=== PATIENT | female | born 1950 | race Caucasian/White ===

== ENCOUNTER 2019-03-22 21:27 | Observation (INO) ==
[2019-03-22] MEDS ORDERED: NITROGLYCERIN TOP ONE (21:36)
--- NOTE | 2019-03-22 21:40 | PROVIDER DOCUMENTATION ---
This chart was entered by Du Chance Scribe, acting as scribe for Geovany Howell MD. HPI-Chest Pain - General Chief Complaint: Chest Pain Stated Complaint: CP Time Seen by Provider: 03/22/19 21:31 Source: patient, EMS Allergies/Adverse Reactions: Patient Allergies Allergy/AdvReac Type Severity Reaction Status Date / Time oxycodone HCl * Allergy Severe ANAPHYLAXIS Verified 03/22/19 21:38 [From Percocet] Sulfa (Sulfonamide Allergy Severe HIVES Verified 03/22/19 21:38 Antibiotics) meloxicam Allergy Intermediate HIVES Verified 03/22/19 21:38 levofloxacin [From Levaquin] Allergy Unknown Verified 03/22/19 21:38 methylprednisolone AdvReac Severe high blood Verified 03/22/19 21:38 sugar Home Medications: Home Medication List Medication Instructions Recorded Confirmed Last Taken Type Cetirizine HCl 10 mg PO DAILY 12/12/13 02/19/19 11/16/17 History 10 MG Digoxin 250 mcg PO DAILY 12/12/13 02/19/19 11/16/17 History 250 MCG ENALApril [Vasotec] 5 mg PO BID 12/12/13 02/19/19 11/15/17 History 5 MG Furosemide 40 mg PO DAILY 12/12/13 02/19/19 11/16/17 History 40 MG Metoprolol Tartrate 12.5 mg PO BID 12/12/13 02/19/19 11/16/17 History 12.5 MG Spironolactone 25 mg PO DAILY 12/12/13 02/19/19 11/16/17 History 25 MG Aspirin [Aspirin EC] 81 mg PO DAILY #0 12/19/13 02/19/19 11/15/17 Rx 81 MG Isosorbide Mononitrate E.r. [Imdur] 30 mg PO DAILY 11/16/15 02/19/19 11/16/17 History 30 MG Pantoprazole [Protonix] 40 mg PO DAILY 11/16/15 02/19/19 11/16/17 History 40 MG Glipizide 10 mg PO DAILY 05/13/16 02/19/19 11/16/17 History 10 MG Famotidine [Pepcid] 20 mg PO BID 11/16/17 02/19/19 11/16/17 History 20 MG Lidocaine 5% Patch [Lidoderm] 1 ea TOP DAILY #6 patch 11/16/17 02/19/19 Unknown Rx Nystatin Cream [Mycostatin Cream] 1 applicatn TOP TID #1 tube 03/19/18 02/19/19 Unknown Rx Polyethylene Glycol 3350 [Miralax] 17 gm PO DAILY #255 powder 03/19/18 02/19/19 Unknown Rx Hyoscyamine Subl [Levsin-Sl] 0.125 mg SL TID #10 tab 03/24/18 02/19/19 Unknown Rx Fluticasone 50 Mcg Nasal [place] 1 spray INTRANASAL DAILY #1 bottle 02/19/19 Unknown Rx [Flonase] Loratadine 10 mg PO DAILY #15 tab 02/19/19 Unknown Rx - History of Present Illness-CP Nature of Presenting Problem: Pt is a 68 yof who presents to the ED via EMS with a CC of chest pain. Pt reports her chest pain began approximately one hour prior to arrival to the ED. Pt reports her pain is on the left side of her heart. Pt reports a hx of a heart attack and states she had a cardiac stent placed. Pt reports her current pain is a 3/10 on examination. Location: reports: central Quality of Pain: reports: aching Severity in ED: mild Onset/Duration: 1 hour ago Timing: still present, improving Nitro Today/Relief: 0.4 mg x 2, provided at home Prior Chest Pain/Cardiac Workup: reports: cardiac cath Similar Symptoms Previously?: Yes Recently Seen Here or By Another Healthcare Provider: No Review of Systems - Adult - REVIEW OF SYSTEMS - ADULT Constitutional: reports: see HPI Eyes: reports: no symptoms reported Ears, Nose, Mouth & Throat: reports: no symptoms reported Cardiovascular: reports: see HPI, chest pain Respiratory: reports: no symptoms reported Neurological: reports: no symptoms reported Psychiatric: reports: no symptoms reported Endocrine: reports: no symptoms reported Hematologic/Lymphatic: reports: no symptoms reported Allergic/Immunologic: reports: no symptoms reported All Other Systems: Reviewed and Negative Past History - Adult - PAST MEDICAL HISTORY-ADULT Review of Records: reports: Old Records Reviewed, Nursing Assessment Review, Medications Reviewed, Social history reviewed & non-contributory. Major Childhood Illnesses: reports: denies history Cardiovascular: reports: cardiac disease, CHF, HTN, [place], pacemaker, other (AICD) Respiratory: reports: denies history Gastrointestinal: reports: colitis, diverticulosis, GI bleed, IBS, obstruction, other (diverticulitis) Obstetrical/Gynecological: reports: denies history Genitourinary: reports: denies history Musculoskeletal: reports: denies history Neurological: reports: denies history Endocrine/Immune: reports: Diabetes Other Conditions: reports: denies history - PRIOR SURGERIES/PROCEDURES Surgical/Procedure History: reports: appendectomy, cholecystectomy, pacemaker (defib), hysterectomy, bowel surgery (colon resection /ischemic bowel) - IMMUNIZATION STATUS Childhood Immunizations: See Nurse Assessment Flu Vaccine: See Nurse Assessment - FAMILY HISTORY Family History: reviewed, not pertinent - SOCIAL HISTORY Smoking: non-smoker, quit greater than 1 year Substance Use: none/never, denies Alcohol Use Frequency: never Physical Exam-General - PHYSICAL EXAM-ADULT Initial Vital Signs Reviewed: Yes - CONSTITUTIONAL General Appearance: alert, mild distress - EYES Eyes: PERRL/EOMI, pink conjunctivae - HEAD, EARS, NOSE, MOUTH & THROAT HENMT: normocephalic/atraumatic, moist mucous membranes - NECK Neck: non-tender, full range of motion - GASTROINTESTINAL (ABDOMEN) Abdominal Exam: non tender, soft - MUSCULOSKELETAL Extremity: normal range of motion, non-tender - SKIN Integumentary: normal color, warm/dry - NEUROLOGIC Neurologic: grossly normal, no motor/sensory deficits - PSYCHIATRIC Psych/Mental Status: normal mood/affect, normal thought content, normal thought process, oriented x 3 - HEART Score HEART Score: History: Slightly Suspicious HEART Score: ECG: Normal HEART Score: Age: > or = 65 Years HEART Score: Risk Factors for Atherosclerotic Disease: > or = 3 Risk Factors or History of Atherosclerotic Disease HEART Score: Troponin: < or = Normal Limit Total HEART Score:: 4 Progress - PLAN OF CARE/RESULTS Progress/Plan/Lab Results: Laboratory Results - last 24 hr 03/22/19 03/22/19 00:35 00:35 Creatine Kinase 64 Troponin T < 0.010 Result Diagrams: 03/22/19 21:42 03/22/19 21:42 - REASSESSMENT Reassessment #1 Time Reassessed: 23:00 Status: improving Reassessment Comment: chest pain free - EKG 1 Time of EKG reading by physician:: 21:35 EKG Read and Signed by:: Goevany Howell EKG Interpretation (*Must complete 3 of following elements*): Normal Rate: 87 Rhythm: NSR [place]: normal QRS: normal NM Interval: normal ST Wave: normal - CONSULTS/PCP/HOSPITALIST Notification #1 *Consult/PCP/Hospitalist*: Dr. Mancini Time Discussed: 23:15 Reason/Comments: report given Consult Disposition: Admit Departure - Departure Date of Disposition Decision: 03/23/19 Time of Disposition Decision: 00:46 DIAGNOSIS: Chest pain Qualifiers: Chest pain type: unspecified Qualified Code(s): R07.9 - Chest pain, unspecified CAD (coronary artery disease) Qualifiers: Coronary Disease-Associated Artery/Lesion type: [place] artery [place] vs. transplanted heart: [place] heart Associated angina: with unspecified angina Qualified Code(s): I25.119 - Atherosclerotic heart disease of [place] coronary artery with unspecified angina pectoris Disposition: ADMITTED INPATIENT 09 Certified Medical Emergency: Emergent Condition: Stable - Critical Care Note This patient required my direct & personal management of CC.: No Attestation - Physician/ MARC Attestation Patient care was provided by Advanced Practice Provider:: No The physician spent face to face time with patient:: Yes Advanced Practice Provider documentation review:: Supervising physician onsite and consulted in the evaluation and care of this patient. The physician did have a face to face encounter with the patient. This chart was documented by the indicated scribe, (Du Chance, Scribe) and accurately reflects the services I performed and decisions made by me, Geovany Howell MD, as attested by the provider's signature.
[2019-03-22 21:55] LABS: BASO# 0.06 X1000 (0.0-0.2); BASO% 0.5 % (0.0-0.8); EOS% 5.8 % (0.0-10.0); HEMOGLOBIN 13.4 g/dL (12.0-16.0); IMM GRAN% 0.8 % (0.0-0.5); LYMPH# 3.33 X1000 (1.2-3.4); LYMPH% 27.5 % (20.5-51.1); MCHC 31.9 g/dL (33-37); MCV 78.2 FL (81-99); MONO# 0.59 X1000 (0.11-0.59); MONO% 4.9 % (1.7-9.3); MPV 9.8 FL (7.4-10.4); NEUT# 7.35 X1000 (1.4-6.5); NEUT% 60.5 % (42.2-75.2); PLT 295 X1000 (130-400); RBC 5.37 XMIL (4.2-5.4); RDW 17.5 % (11.5-14.5); WBC 12.13 X1000 (4.8-10.8)
[2019-03-22 22:31] LABS: AGAP 16; ALB/GLOB RATIO 1.5; ALBUMIN 4.3 g/dL (3.5-5.0); ALKALINE PHOSPHATASE 102 U/L (32-104); BUN 19 mg/dL (8-22); CALCIUM 9.5 mg/dL (8.8-10.2); CHLORIDE 99 mmol/L (98-107); CK PROFILE 73 U/L (24-173); COSMO 282; CREATININE 0.7 mg/dL (0.5-0.9); ESTIMATED GFR > 60; GLUCOSE 210 mg/dL (70-104); GOT 21 U/L (10-30); GPT 27 U/L (10-36); POTASSIUM 4.4 mmol/L (3.5-5.1); SODIUM 137 mmol/L (136-145); TCO2 22 mmol/L (25-35); TOTAL BILIRUBIN 0.15 mg/dL (0.20-1.00); TOTAL PROTEIN 7.2 g/dL (6.3-8.3)
--- NOTE | 2019-03-22 22:50 | EKG Report ---
Test Performed on : 03/22/2019 9:34:46 PM Test Reason : CP Blood Pressure : / mmHG Vent. Rate : 087 BPM Atrial Rate : 087 BPM P-R Int : 206 ms QRS Dur : 102 ms QT Int : 382 ms P-R-T Axes : 065 -18 088 degrees QTc Int : 459 ms Normal sinus rhythm. Normal ECG When compared with ECG of 19-FEB-2019 19:58, (Unconfirmed) No significant change was found Unconfirmed Result
[2019-03-22] MEDS ORDERED: NITROGLYCERIN TOP PRN (23:51)
[2019-03-23] MEDS ORDERED: NITROGLYCERIN TOP PRN (05:01)
--- NOTE | 2019-03-23 05:28 | HISTORY AND PHYSICAL ---
CHIEF COMPLAINT: Left-sided chest pain for less than 1 day. HISTORY OF PRESENT ILLNESS: Ms Jadyn Ramires is a 68-year-old female, who has a history of nonischemic cardiomyopathy, coronary artery disease, history of ventricular fibrillation with an ICD, hypertension and diabetes mellitus. She presented to the hospital because of left-sided chest pain for less than one day. She describes the pain as sharp, intermittent, and usually lasts about 30 seconds. It radiates to her jaw and across her chest. It is improved with nitroglycerin and also aspirin, and made worse with activity. She has had associated shortness of breath, palpitations as well as diaphoresis. At time of her presentation, troponins were not elevated. Chest x-ray was essentially normal. EKG shows normal sinus rhythm. The patient indicates that she has had a cardiac stress test in the last 1 to 2 years, and also a cardiac cath about a year ago. She does have one stent in place. The patient has now [*] and admitted to the floor for further management. PAST MEDICAL HISTORY: 1. Nonischemic cardiomyopathy. 2. Coronary artery disease. 3. History of ventricular fibrillation with ICD. 4. Hypertension. 5. Type 2 diabetes mellitus. 6. History of atrial fibrillation. 7. Gastroesophageal reflux disease. 8. Arthritis. SOCIAL HISTORY: No history of cigarette smoking, alcohol or drug use. PAST SURGICAL HISTORY: She has had bilateral breast lumpectomy, appendectomy, cholecystectomy, low back surgery, hysterectomy, and colon resection. She has also had a left heart catheterization in May of 2015, and had left circumflex stent placed. ALLERGIES: She is allergic to Percocet as well as sulfa and Meloxicam. FAMILY HISTORY: Positive for congestive heart failure as well as colon cancer. MEDICATIONS: 1. Lidocaine patch 1 daily. 2. Nystatin cream as directed. 3. Famotidine 20 mg as directed. 4. Fluticasone nasal spray as directed. 5. Lasix 40 mg p.o. as directed. 6. Glipizide 10 mg p.o. 7. Loratadine 10 mg as directed. 8. MiraLAX. 9. Spironolactone. 10. Aspirin 81 mg p.o. daily. 11. Cetirizine 10 mg p.o. daily. 12. Digoxin 250 mcg as directed. Enalapril 5 mg p.o. as directed. 13. Imdur 30 mg. 14. Metoprolol 25 mg p.o. as directed. 15. Pantoprazole 40 mg p.o. as directed. 16. Hyoscyamine 0.125 mg sublingual 3 times a day. REVIEW OF SYSTEMS: Constitutional: No fevers. ADMINISTRATION INTERNSHIP: She has headaches. Eyes: No blurred vision. ENT: No sinus point tenderness. Cardiovascular: As in history of present illness. Respiratory: She has cough. GI: Nausea. No vomiting, diarrhea, or abdominal pain. : No dysuria. Musculoskeletal: She has joint pains. Dermatology: She has skin lesions. Hematology: No bleeding problems. Endocrinology: She has diabetes. No thyroid disease. Psychiatric: No anxiety or depression. Allergies/Immunology: She does have symptoms suggestive of allergic rhinitis. PHYSICAL EXAMINATION: VITAL SIGNS: Temperature 98 degrees, pulse 77, respirations 12, blood pressure 146/65, and oxygen saturation 98%. HEENT: She is atraumatic, normocephalic. She is anicteric. Extraocular movements intact. No oral lesions noted. NECK: No lymphadenopathy or thyromegaly. CARDIOVASCULAR: S1, S2. RESPIRATORY: Evidence of good entry bilaterally. ABDOMEN: Soft, nontender. No masses felt. EXTREMITIES: She has trace edema in the lower extremities. CENTRAL NERVOUS SYSTEM: No obvious focal deficit noted. LABORATORY: WBC 12.13, hematocrit 42 with a platelet count of 295,000. Sodium is 137, potassium 4.4, chloride 99, bicarb 23, BUN is 19, creatinine 0.7, and glucose 210. Troponin is less than 0.010 x 2. Chest x-ray normal. EKG shows normal sinus rhythm. ASSESSMENT AND PLAN: 1. Atypical chest pain/history of coronary artery disease. Place patient on telemetry. Follow up on serial cardiac enzymes. Maintain patient on aspirin as well as beta rebecca. Nitroglycerin p.r.n. for chest pain. Check 2D echo of the heart. Consult with Cardiology. 2. Nonischemic cardiomyopathy. Stable. Continue appropriate cardiac medications, digoxin, ART inhibitor, Lasix, beta rebecca and spironolactone. 3. Diabetes mellitus. Maintain patient on blood sugar monitor as well as sliding scale insulin. Check hemoglobin A1c level. 4. Gastroesophageal reflux disease. Maintain patient on proton pump inhibitor. 5. Hypertension. Continue current antihypertensive regimen. 6. History of atrial fibrillation. Maintain patient on telemetry check. Thyroid function test. Consult with Cardiology. 7. Leukocytosis. Repeat white count is elevated. May need to find source, probably infective. 8. Microcytosis. Check iron studies. 9. Deep vein thrombosis prophylaxis. Lovenox. 10. Gastrointestinal prophylaxis. Proton pump inhibitor. cc: Griffin Mancini MD
--- NOTE | 2019-03-23 06:02 | Diag Imaging Result Doc PS360 ---
EXAM: CHEST-1 VIEW HISTORY: chest pain TECHNIQUE: Single view COMPARISON: 04/24/2018 FINDINGS: The lungs are well expanded. The heart is mildly prominent. Left pacemaker. The vessels are not distended. There are no infiltrates. No effusion identified. Right granuloma. IMPRESSION: Stable chest Electronically signed by Prabhjot Ballesteros 03/23/2019 6:00 AM
[2019-03-23] MEDS: HUMALOG SUBQ SCH ×2 (06:17→11:32)
[2019-03-23] MEDS ORDERED: PRILOSEC PO SCH (07:00)
[2019-03-23 07:12] LABS: HEMOGLOBIN A1C 7.3 % (4.8-6.0)
[2019-03-23 07:18] LABS: CHOLESTEROL 148 mg/dL (0-200); HDL 30 mg/dL (45-65); LDL 80 mg/dL; TRIGLYCERIDES 189 mg/dL (35-135); VLDL 38 mg/dL
[2019-03-23] MEDS ORDERED: VASOTEC PO SCH (09:00)
[2019-03-23] MEDS ORDERED: LOVENOX SUBQ SCH (09:00)
[2019-03-23] MEDS ORDERED: ALDACTONE PO SCH (09:00)
[2019-03-23] MEDS ORDERED: IMDUR PO SCH (09:00)
[2019-03-23] MEDS ORDERED: LOPRESSOR PO SCH ×2 (09:00→10:24)
[2019-03-23] MEDS ORDERED: ZYRTEC PO SCH (09:00)
[2019-03-23] MEDS ORDERED: LANOXIN PO SCH (09:00)
[2019-03-23] MEDS ORDERED: ASPIRIN EC PO SCH ×2 (09:00→21:00)
[2019-03-23] MEDS ORDERED: LASIX PO SCH (09:00)
[2019-03-23 11:57] VITALS: BP 135/73
--- NOTE | 2019-03-23 15:35 | CONSULTATION ---
DATE OF CONSULTATION: 03/23/2019 IMPRESSION: 1. Episode of chest discomfort lasting approximately 30 minutes with mixed features for myocardial ischemia. Serial troponins normal despite 30 minutes of discomfort. 2. Nonischemic cardiomyopathy. 3. Atherosclerotic coronary disease with previous coronary angioplasty/stent procedures in the past. She had coronary angiography approximately 6 months ago for recurrent chest pain and continue medical management was felt to be most appropriate. 4. History of ventricular arrhythmias. Patient is status post implantable defibrillator with Medtronic device. 5. Paroxysmal atrial fibrillation. Patient continues in sinus rhythm. 6. Type 2 diabetes mellitus. 7. Gastroesophageal reflux disease. RECOMMENDATIONS: 1. Increase metoprolol. 2. Interrogate her device to see if there any clues regarding any possible arrhythmia or atrial fibrillation that might have provoked her chest discomfort. 3. Given fairly recent coronary angiography and negative cardiac enzymes, it is reasonable for her to go home to have prompt followup with her regular aquatic physiotherapist, Dr. Rodriguez. She has already eaten breakfast today and expresses a strong preference not to stay in the hospital over the weekend. I certainly think it is most reasonable for her to go home if interrogation of her device shows no significant arrhythmias. HISTORY: This is a 68-year-old white female with past history of nonischemic cardiomyopathy, atherosclerotic coronary disease and previous coronary angioplasty/stent procedures in the past, ventricular arrhythmias, implantable defibrillator, hypertension, type 2 diabetes mellitus, previous atrial fibrillation, gastroesophageal reflux, was admitted to the emergency room for evaluation of chest pain. She reports an episode of dull central chest discomfort radiating to the neck and shoulders which began spontaneously. Symptoms lasted approximately 30 minutes. She was admitted through the emergency room and cardiology consultation requested. She has not had recurrence of discomfort. She has had occasional chest discomfort in the past. She had coronary angiography approximately 6 months ago in [place] which dictated continued medical management. Her coronary angiogram report is available and indicates left ventricular ejection fraction 45 to 50 percent, normal left main coronary, normal LAD, patent stents in the mid segment of the left circumflex coronary and 2nd obtuse marginal, and mild irregularities in the right coronary. Left ventricular end-diastolic pressure was 14. She does relate that there were some palpitations in association with the chest discomfort. PAST MEDICAL HISTORY: 1. Nonischemic cardiomyopathy. 2. Atherosclerotic coronary disease with previous coronary angioplasty/stenting of left circumflex coronary and 2nd obtuse marginal in the past. Coronary angiography earlier this year demonstrated stents patent. 3. History of ventricular arrhythmias. Patient is status post implantable defibrillator with Medtronic device. 4. Hypertension. 5. Type 2 diabetes mellitus. 6. Previous atrial fibrillation in the past. Patient continues in sinus rhythm. 7. Gastroesophageal reflux disease. 8. Arthritis. 9. She is allergic or intolerant to Percocet, sulfa. MEDICATIONS PRIOR TO ADMISSION: As listed. SOCIAL HISTORY: She is . She does not smoke or use alcohol. FAMILY HISTORY: Negative for premature coronary disease. REVIEW OF SYSTEMS: Pulmonary: Noncontributory. Gastrointestinal: Noncontributory. Constitutional: Noncontributory. Remainder review of systems negative/noncontributory with 14 total systems reviewed. PHYSICAL EXAMINATION: General: This is a pleasant, older white female in no distress. Vital signs: Blood pressure 135/73, heart rate 63, oxygen saturation 97%. HEENT: Extraocular movements appear intact. Mucous membranes are moist. Neck: Supple. No jugular venous distention. There are no carotid bruits. Chest: Clear to auscultation bilaterally. Cardiac Exam: Reveals a regular rate and rhythm without appreciable murmur or gallop. Abdomen: Soft. Bowel sounds are normal. Extremities: Without edema. Neurologic: Reveals her to be alert and fully oriented. Speech is fluent. She moves all 4 extremities equally well. Skin: Warm and dry. Psychiatric: Reveals her mood to be appropriate. DIAGNOSTIC STUDIES: 12 lead EKG demonstrates normal sinus rhythm and is within normal limits. LABORATORY DATA: Includes initial troponin T less than 0.01 with followup troponin T less than 0.01 and less than 0.01. White blood cell count 12.13, hematocrit 42, hemoglobin 13.4, platelet count 295,000. Sodium 137, potassium 4.4, chloride 99, carbon dioxide 22, BUN 19, creatinine 0.7, glucose 210. Initial CPK 64. Followup CPK 73 and 54 fasting triglycerides 189, cholesterol 148, LDL cholesterol 80, HDL cholesterol 30, LDL cholesterol 38, digoxin level 1.1. cc: Eric Rousseau MD
--- NOTE | 2019-03-23 18:04 | ECHO REPORT ---
ORDER DATE: 03/23/2019 INDICATION: Patient with congestive heart failure, atrial fibrillation, chest pain. M-MODE MEASUREMENTS: Left ventricle end diastole: 4.8. Left ventricle end systole: 3.9. Posterior wall: 0.9. Interventricular septum: 0.9. Left atrium: 4.0. Aortic diameter: 3.0. SUMMARY OF 2-DIMENSIONAL IMAGIN. Left ventricular function is normal. Ejection fraction is estimated at 50% to 55%. The chamber appears to be generous in size. There is atypical contractility of the septum. The patient has a pacemaker . 2. The left atrium appears to be mildly enlarged. 3. The aortic valve has 3 cusps. They open normally. Color flow mapping unremarkable. 4. The pulmonic valve looks normal. Color flow mapping indicates trace regurgitation. 5. The tricuspid valve shows a mild degree of regurgitation. 6. The right ventricle appears to be mildly enlarged. 7. Pulmonary pressure is estimated at 28 mmHg. 8. There is no pericardial effusion, no mass, and no thrombus. 9. The mitral valve shows a mild degree of regurgitation. 10.Pulsed wave Doppler of mitral inflow shows reversal of the E/A ratio. The ratio is 0.7. 11.Tissue Doppler of septal and lateral mitral annulus averages 7 cm. There is no diastolic dysfunction. Clinical correlation recommended. cc: MD Griffin Hollis MD
--- NOTE | 2019-03-24 05:22 | DISCHARGE SUMMARY ---
ADMISSION DATE: 03/22/2019 DISCHARGE DATE: 03/23/2019 DISCHARGE DIAGNOSES: 1. Chest pain, acute coronary syndrome has been ruled out. 2. Nonischemic cardiomyopathy. 3. Atherosclerotic coronary artery disease with previous coronary angioplasty/stent procedure in the past. She had a coronary angiography around 6 months ago for recurrent chest pain and continued medical management was felt to be most appropriate. 4. History of ventricular arrhythmia, status post implantable defibrillator. 5. Paroxysmal atrial fibrillation. The patient continues in sinus rhythm. 6. Type 2 diabetes. 7. Gastroesophageal reflux disease. HOSPITAL COURSE: Mrs Ramires is a 68-year-old female with a past medical history of nonischemic cardiomyopathy, coronary artery disease, history of ventricular fibrillation with an ICD placed, hypertension, and diabetes, she presented to the hospital because of left-sided chest pain for less than 1 day, apparently lasted around 30 minutes. She described it as sharp, intermittent, and usually last about 30 seconds. It was radiating to her jaw and across the chest. It improved with nitroglycerin and also aspirin. It was worse with activity associated with shortness of breath, palpitations, as well as diaphoresis. Troponin's were not elevated and actually they were normal x3. Chest x-ray basically normal as well. EKG showed normal sinus rhythm. The patient had a stress test done 1 year ago or so and also a cardiac cath, like I mentioned before, and it was felt that this patient can be treated medically. She was admitted and she was evaluated by Cardiology Department. This patient's troponin's were negative x3 with no electrocardiogram changes. This patient basically went back to her baseline. She is not having chest pain or shortness of breath, no discomfort at all. So, after evaluation by Cardiology Department, it was felt that this patient can be discharged home and follow up with Dr. 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 PHYSICAL EXAMINATION: Vital signs: Temperature 97.5 degrees, pulse 63, respiratory rate 21, blood pressure 135/73, oxygen saturation 97% on room air. HEENT: Head normocephalic, atraumatic. PERRLA. Neck: Supple. No JVD. No masses. Central trachea. Chest: Clear to auscultation. No wheezing. No rales. Abdomen: Soft, nontender, nondistended. No hepatosplenomegaly. Extremities: No edema, no clubbing, no cyanosis. Neurological: The patient is alert, she is oriented x3. No focal deficits. LABORATORY: Hemoglobin A1c 7.3. Glucose 146. Triglyceride 189, cholesterol 148, LDL 80, HDL 30. Digoxin level 1.1. DISCHARGE MEDICATIONS: 1. Aspirin 81 mg p.o. daily. 2. Cetirizine 10 mg p.o. daily. 3. Digoxin 250 mcg p.o. daily. 4. Vasotec 5 mg p.o. b.i.d. 5. Flonase 1 spray intranasally daily. 6. Furosemide 40 mg p.o. daily. 7. Glipizide 10 mg p.o. daily. 8. Levsin XL 0.125 mg sublingual t.i.d. 9. Imdur 30 mg p.o. daily. 10. Lidocaine patch 1 application daily. 11. Loratadine 10 mg p.o. daily. 12. Metoprolol tartrate 12.5 mg p.o. daily. 13. Pantoprazole 40 mg p.o. daily. 14. MiraLAX 17 g p.o. daily. 15. Spironolactone 25 mg p.o. daily. TIME SPENT: Time discharging this patient 25 minutes. cc: Figueroa Mccauley MD
[2019-03-24] MEDS ORDERED: LOVENOX SUBQ SCH (09:00)
== END 2019-03-23 15:47 | disposition home or self-care (01) ==
LOC: 3N 21:27 → ED 21:27 → SUATTDRO 21:28
PROVIDERS: ATTEND Internal Medicine